=== PATIENT | male | born 1935 | race Two or more races ===

== ENCOUNTER → 2018-06-02 | Outpatient (CLI) | payer OTHER | END | disposition home or self-care (01) | LOC: RAH 12:49 | PROVIDERS: ATTEND Internal Medicine | DX: I51.7 Cardiomegaly (principal); R09.89 Other specified symptoms and signs involving the circulatory and respiratory systems | CPT/HCPCS: 71046 ==

== ENCOUNTER → 2018-07-27 | Outpatient (CLI) | payer OTHER | END | disposition home or self-care (01) | LOC: RAH 16:13 | PROVIDERS: ATTEND Internal Medicine | DX: M19.012 Primary osteoarthritis, left shoulder (principal) | CPT/HCPCS: 73030 ==

== ENCOUNTER → 2018-08-06 | Outpatient (CLI) | payer OTHER ==
--- NOTE | 2018-08-06 13:49 | NUR ---
MBSS COMPLETE. SHALLOW NON-TRANSIENT PENETRATION WITH THIN LIQUIDS VIA CONSECUTIVE CUP SIP. RECOMMEND REGULAR, THIN LIQUID DIET; PILLS WHOLE WITH LIQUIDS. PATIENT INFORMATION: Pt IS AN 83 Y.O. MALE REFERRED FOR AN MBSS SECONDARY TO COUGHING DURING P.O. Pt AAOX3 AND COOPERATIVE DURING THE EVALUATION. Pt STATES THAT HE COUGHS WHEN HE IS EATING, MORE SO WITH THIN LIQUIDS. Pt WITH SLOW WALKING WHEN ENTERING ROOM. Pt STATES THAT HE HAS BEEN FEELING LIKE HE IS MORE TIRED AND HIS LEGS ARE WEAK. Pt HAS A PAST MEDICAL HISTORY SIGNIFICANT FOR KIDNEY DISEASE, LEFT SHOULDER PAIN, CABG, DM. 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 NO ASPIRATION PRESENT AT THE TIME OF THE EVALUATION. TRIALS: 1.TSP PUREED: GOOD 2.TSP PUDDING: GOOD 3.TSP MIXED: POOLING IN VALLECULAE WITH SPILLOVER INTO PYRIFORM SINUS (NO PENETRATION OR ASPIRATION) 4. TSP COOKIE: GOOD 5. TSP THIN LIQUIDS: GOOD (POOLING IN THE VALLECULAE WITH SPILLOVER INTO PYRIFORM SINUS) 6. CUP SIP THIN LIQUIDS: GOOD (POOLING IN VALLECULAE WITH SPILLOVER INTO PYRIFORM SINUS) 7.CUP SIP CONTINUOUS: SHALLOW TRANSIENT PENETRATION (SILENT) RECOMMENDATIONS: 1. REGULAR TEXTURE, THIN LIQUID DIET; PILLS WHOLE WITH LIQUIDS. 2. COMPENSATORY STRATEGIES (PROPHYLAXIS): *SEATED AT 90 DEGREE ANGLE *SMALL BITES AND SIPS *NO STRAW *ONE SIP AT A TIME 3. NEUROLOGY CONSULT 4. DYSPHAGIA TREATMENT RECOMMENDED TARGETING THE PREVIOUSLY STATED WEAKNESSES. RESULTS AND RECOMMENDATIONS WERE PROVIDED VIA WRITTEN MODALITY. ALL QUESTIONS ANSWERED AT THIS TIME. Pt VERBALIZED AGREEMENT AND COMPLIANCE WITH RECOMMENDATIONS. SUPERVISOR COATING PROVIDED Pt WITH LARYNGEAL ELEVATION/EXERCISES (WORKSHEET). SUPERVISOR COATING DEMONSTRATED EXERCISES, TO BE COMPLETED WITH TREATING THERAPIST. G-CODES SWALLOWING: [id number] Addendum: 08/06/18 at 1400 by ESSIE HURST, SPT ST Amended: Links added.
== END | disposition home or self-care (01) ==
LOC: RAH 10:43
PROVIDERS: ATTEND Internal Medicine
DX: R13.12 Dysphagia, oropharyngeal phase (principal); R68.89 Other general symptoms and signs; E11.9 Type 2 diabetes mellitus without complications; E78.5 Hyperlipidemia, unspecified; I10 Essential (primary) hypertension; I25.10 Atherosclerotic heart disease of native coronary artery without angina pectoris; I65.23 Occlusion and stenosis of bilateral carotid arteries; Z95.1 Presence of aortocoronary bypass graft
CPT/HCPCS: 74230; 92611; G8996; G8997; G8998

== ENCOUNTER → 2020-02-28 | Outpatient (CLI) | payer OTHER | END | disposition home or self-care (01) | LOC: RAH 16:26 | PROVIDERS: ATTEND Internal Medicine | DX: M79.671 Pain in right foot (principal); L89.899 Pressure ulcer of other site, unspecified stage | CPT/HCPCS: 73620 ==

== ENCOUNTER → 2020-03-07 | Outpatient (CLI) | payer OTHER | END | disposition home or self-care (01) | LOC: RAH 13:31 | PROVIDERS: ATTEND Podiatrist | DX: S90.851D Superficial foreign body, right foot, subsequent encounter (principal); L90.9 Atrophic disorder of skin, unspecified; E10.51 Type 1 diabetes mellitus with diabetic peripheral angiopathy without gangrene; X58.XXXD Exposure to other specified factors, subsequent encounter | CPT/HCPCS: 93922 ==

== ENCOUNTER → 2020-03-20 | Outpatient (CLI) | payer OTHER, MEDICARE | END | disposition home or self-care (01) | LOC: SHCH 09:51 | PROVIDERS: ATTEND Internal Medicine Cardiovascular Disease | DX: I73.9 Peripheral vascular disease, unspecified (principal) | CPT/HCPCS: 93925 ==

== ENCOUNTER → 2020-05-01 | Outpatient (CLI) | payer OTHER ==
[~2020-05-01] MED LIST: SODIUM CHLORIDE 0.9% 500ML 500 ML IV SCH
[2020-05-01 14:12] LABS: APPEARANCE,URINE Clear (CLEAR); BASOPHILS % (AUTO) 0.7 % (0.0-5.0); BILIRUBIN,URINE Negative (NEGATIVE); COLOR,URINE Yellow (YELLOW); EOSINOPHILS % (AUTO) 5.3 % (0.0-8.0); GLUCOSE, URINE (UA) Negative (NEGATIVE); KETONES,URINE Negative (NEGATIVE); LEUKOCYTE ESTERASE ,URINE Negative (NEGATIVE); LYMPHOCYTES % (AUTO) 13.7 % (21.0-51.0); MEAN CORPUSCULAR HEMOGLOBIN 31.4 pg (27.0-33.0); MEAN CORPUSCULAR HGB CONC 31.4 g/dL (32.0-36.0); MONOCYTES % (AUTO) 11.5 % (3.0-13.0); NEUTROPHILS % (AUTO) 68.6 % (40.0-77.0); NITRATE,URINE Negative (NEGATIVE); OCCULT BLOOD,URINE Negative (NEGATIVE); PH,URINE 6.5 (5.0-8.0); PLATELET COUNT (AUTO) 162 K/uL (130-400); PROTEIN,URINE Negative (NEGATIVE); RED CELL DISTRIBUTION WIDTH 13.1 % (11.0-15.5); UROBILINOGEN,URINE 0.2 mg/dL (0.2-1.0); WHITE BLOOD COUNT (AUTO) 5.5 K/uL (4.8-10.8)
[2020-05-01 14:21] LABS: CREATININE 1.9 mg/dL (0.5-1.5); POTASSIUM 5.3 mmol/L (3.5-5.1)
[2020-05-01 14:24] LABS: INR 1.04 (0.85-1.15); PROTHROMBIN TIME 11.3 SEC (9.6-11.6)
[2020-05-01 14:25] LABS: PARTIAL THROMBOPLASTIN TIME 28.1 SEC (26.3-35.5)
== END ==
LOC: DAH 10:00 → EDSTATUS 13:00
PROVIDERS: ATTEND Internal Medicine Cardiovascular Disease
DX: Z01.818 Encounter for other preprocedural examination (principal); I73.9 Peripheral vascular disease, unspecified; L97.519 Non-pressure chronic ulcer of other part of right foot with unspecified severity; I44.7 Left bundle-branch block, unspecified; I44.0 Atrioventricular block, first degree; J90 Pleural effusion, not elsewhere classified; Z79.01 Long term (current) use of anticoagulants
CPT/HCPCS: 36415; 71045; 80048; 81003; 85025; 85610; 85730; 93005

== ENCOUNTER → 2020-05-18 | Outpatient (CLI) | payer OTHER ==
[2020-05-18 14:54] LABS: BASOPHILS % (AUTO) 0.7 % (0.0-5.0); EOSINOPHILS % (AUTO) 5.1 % (0.0-8.0); HEMATOCRIT 34.5 % (42-54); LYMPHOCYTES % (AUTO) 11.8 % (21.0-51.0); MEAN CORPUSCULAR HEMOGLOBIN 31.5 pg (27.0-33.0); MEAN CORPUSCULAR HGB CONC 32.5 g/dL (32.0-36.0); MEAN CORPUSCULAR VOLUME 97.2 fL (79-99); MONOCYTES % (AUTO) 10.8 % (3.0-13.0); NEUTROPHILS % (AUTO) 71.3 % (40.0-77.0); PLATELET COUNT (AUTO) 86 K/uL (130-400); RED BLOOD CELL COUNT(AUTO) 3.55 MIL/uL (4.50-6.20); RED CELL DISTRIBUTION WIDTH 12.8 % (11.0-15.5)
[2020-05-18 15:00] LABS: CREATININE 1.9 mg/dL (0.5-1.5); POTASSIUM 4.8 mmol/L (3.5-5.1)
[2020-05-18 15:04] LABS: INR 1.05 (0.85-1.15); PROTHROMBIN TIME 11.4 SEC (9.6-11.6)
[2020-05-18 15:05] LABS: PARTIAL THROMBOPLASTIN TIME 27.3 SEC (26.3-35.5)
== END | disposition home or self-care (01) ==
LOC: DAH 10:00 → EDSTATUS 14:00
PROVIDERS: ATTEND Internal Medicine Cardiovascular Disease
DX: Z01.818 Encounter for other preprocedural examination (principal); I73.9 Peripheral vascular disease, unspecified; Z79.01 Long term (current) use of anticoagulants
CPT/HCPCS: 36415; 71045; 80048; 85025; 85610; 85730; 93005

== ENCOUNTER → 2020-06-15 | Outpatient (CLI) | payer OTHER ==
[2020-06-15 14:22] LABS: BASOPHILS % (AUTO) 0.4 % (0.0-5.0); EOSINOPHILS % (AUTO) 5.8 % (0.0-8.0); LYMPHOCYTES % (AUTO) 11.6 % (21.0-51.0); MEAN CORPUSCULAR HEMOGLOBIN 30.7 pg (27.0-33.0); MEAN CORPUSCULAR HGB CONC 32.2 g/dL (32.0-36.0); MEAN CORPUSCULAR VOLUME 95.2 fL (79-99); MONOCYTES % (AUTO) 11.8 % (3.0-13.0); NEUTROPHILS % (AUTO) 70.1 % (40.0-77.0); PLATELET COUNT (AUTO) 159 K/uL (130-400); RED BLOOD CELL COUNT(AUTO) 3.36 MIL/uL (4.50-6.20); RED CELL DISTRIBUTION WIDTH 13.6 % (11.0-15.5); WHITE BLOOD COUNT (AUTO) 7.6 K/uL (4.8-10.8)
[2020-06-15 14:33] LABS: APPEARANCE,URINE Clear (CLEAR); BILIRUBIN,URINE Negative (NEGATIVE); COLOR,URINE Yellow (YELLOW); GLUCOSE, URINE (UA) Negative (NEGATIVE); KETONES,URINE Negative (NEGATIVE); LEUKOCYTE ESTERASE ,URINE Negative (NEGATIVE); NITRATE,URINE Negative (NEGATIVE); OCCULT BLOOD,URINE Negative (NEGATIVE); PH,URINE 6.5 (5.0-8.0); PROTEIN,URINE Negative (NEGATIVE); UROBILINOGEN,URINE 0.2 mg/dL (0.2-1.0)
[2020-06-15 14:39] LABS: INR 1.02 (0.85-1.15); PROTHROMBIN TIME 11.1 SEC (9.6-11.6)
[2020-06-15 14:40] LABS: PARTIAL THROMBOPLASTIN TIME 28.3 SEC (26.3-35.5)
== END | disposition home or self-care (01) ==
LOC: DAH 10:00 → EDSTATUS 12:00
PROVIDERS: ATTEND Internal Medicine Cardiovascular Disease
DX: Z01.818 Encounter for other preprocedural examination (principal); I73.9 Peripheral vascular disease, unspecified; I44.7 Left bundle-branch block, unspecified; Z79.01 Long term (current) use of anticoagulants
CPT/HCPCS: 36415; 71045; 80048; 81003; 85025; 85610; 85730; 93005

== ENCOUNTER 2020-07-03 07:19 | Day surgery (SDC) | payer OTHER ==
[2020-06-29 13:03] LABS: BASOPHILS % (AUTO) 0.6 % (0.0-5.0); EOSINOPHILS % (AUTO) 5.1 % (0.0-8.0); HEMATOCRIT 34.1 % (42-54); LYMPHOCYTES % (AUTO) 10.4 % (21.0-51.0); MEAN CORPUSCULAR VOLUME 96.9 fL (79-99); NEUTROPHILS % (AUTO) 70.6 % (40.0-77.0); PLATELET COUNT (AUTO) 69 K/uL (130-400); RED BLOOD CELL COUNT(AUTO) 3.52 MIL/uL (4.50-6.20); RED CELL DISTRIBUTION WIDTH 13.5 % (11.0-15.5); WHITE BLOOD COUNT (AUTO) 6.8 K/uL (4.8-10.8)
[2020-06-29 13:15] LABS: CREATININE 1.8 mg/dL (0.5-1.5); POTASSIUM 5.1 mmol/L (3.5-5.1)
[2020-06-29 13:31] LABS: INR 1.05 (0.85-1.15); PARTIAL THROMBOPLASTIN TIME 25.7 SEC (26.3-35.5); PROTHROMBIN TIME 10.9 SEC (9.6-11.6)
[2020-06-29 14:01] LABS: APPEARANCE,URINE Clear (CLEAR); BILIRUBIN,URINE Negative (NEGATIVE); COLOR,URINE Yellow (YELLOW); GLUCOSE, URINE (UA) Negative (NEGATIVE); KETONES,URINE Negative (NEGATIVE); LEUKOCYTE ESTERASE ,URINE Negative (NEGATIVE); NITRATE,URINE Negative (NEGATIVE); OCCULT BLOOD,URINE Negative (NEGATIVE); PROTEIN,URINE Negative (NEGATIVE); UROBILINOGEN,URINE 0.2 mg/dL (0.2-1.0)
[2020-06-30 11:56] VITALS: BP 112/52
[2020-07-03] VITALS (20 sets, daily range): BP systolic 101–140; BP diastolic 40–74
[~2020-07-03] VITALS: Ht 177.8 cm; Wt 95.3 kg
[~2020-07-03 07:19] MED LIST changes: +AEC81 PO; +ALBU8.5H8 IH; +ATOR40TA69 PO; +BRIM5DRO OU; +CARV3.12 PO; +CETI10TA57 PO; +CLOP75TA14 PO; +FURO-151 PO; +GLIP5TAB11 PO; +INSU3INS3 SQ; +KETO5DRO OU; +LINA5TAB PO; +SACU1TAB PO; +SPIR25TA6 PO; +TAMS-1 PO
[2020-07-03] MEDS ORDERED: CHOL100046 PO (08:00)
[2020-07-03] MEDS ORDERED: FERR-82 PO (08:00)
[2020-07-03] MEDS ORDERED: MIDAZOLAM HCL 1 MG/ML 2ML VIAL ONE (08:12)
[2020-07-03] MEDS ORDERED: HEPARIN SODIUM 1000UNIT/ML 10ML VIAL ONE (08:12)
[2020-07-03] MEDS ORDERED: NITROGLYCERIN 2 MG/VIAL VIAL IV ONE (08:12)
[2020-07-03] MEDS ORDERED: IODIXANOL 320 MG/ML 100 ML VIAL ONE (08:12)
[2020-07-03] MEDS ORDERED: FENTANYL CITRATE PF 50 MCG/1 ML 2ML VIAL ONE (08:13)
[2020-07-03] MEDS ORDERED: LIDOCAINE HCL 2% 20ML ONE (08:13)
[2020-07-03] MEDS ORDERED: SODIUM CHLORIDE 0.9% 1000ML 1,000 ML IV SCH (10:15)
[2020-07-03] MEDS ORDERED: NITROGLYCERIN 0.4 MG SL TAB SL PRN (10:15)
[2020-07-03] MEDS ORDERED: GLUCAGON 1MG KIT 1 MG ML IM PRN (10:15)
[2020-07-03] MEDS ORDERED: DEXTROSE 50%-WATER 50 ML DISP.SYRIN IV PRN (10:15)
[2020-07-03] MEDS ORDERED: SODIUM CHLORIDE 0.9% 10 ML VIAL IVP SCH (10:15)
[2020-07-03] MEDS ORDERED: INSULIN HUMULIN R 100 UNIT/ML 3ML SQ SCH (11:30)
== END 2020-07-03 17:30 | disposition home or self-care (01) ==
LOC: DAH 07:19
PROVIDERS: ATTEND Internal Medicine Cardiovascular Disease
DX: I70.211 Atherosclerosis of native arteries of extremities with intermittent claudication, right leg (principal); I25.10 Atherosclerotic heart disease of native coronary artery without angina pectoris; E11.22 Type 2 diabetes mellitus with diabetic chronic kidney disease; N18.4 Chronic kidney disease, stage 4 (severe); E11.40 Type 2 diabetes mellitus with diabetic neuropathy, unspecified
CPT/HCPCS: 36415 ×2; 37229; 71045; 75710; 80048; 81003; 82948 ×4; 85025; 85347; 85610; 85730 ×3; 93005; A4215; A4216; A4221; A4222; A4223 ×3; A4606; A4615 ×2; A4657; A4663; A6260; A6402; C1724 ×2; C1769 ×2; C1887; C1893; C1894 ×2; J1644 ×2; J2250; J3010; J3490 ×2; J7070; Q9967; 99156; 99157